=== PATIENT | female | born 1995 | race Caucasian/White ===

== ENCOUNTER 2020-11-01 23:35 | Emergency (ER) | payer OTHER, SELFPAY ==
[2020-11-01 23:44] VITALS: BP 140/73; PULSE 92; RESP 16; TEMP 36.6; O2SAT 100; BMI 29.8
--- NOTE | 2020-11-01 23:51 | ED_ITS ---
HPI - Female Genitourinary General Chief complaint: Abdominal Pain Stated complaint: 12w preg, severe pain in abd Time Seen by Provider: 11/01/20 23:35 Source: patient Mode of arrival: Ambulatory Limitations: no limitations History of Present Illness HPI Narrative: 25-year-old female nonsmoker is a at 12 weeks and presents with a chief complaint of a sudden onset right lower quadrant sharp and stabbing pain that started at about 9:00 p.m. tonight. She was laying on the floor with her son and moved and felt this sudden pain. It is sharp and stabbing worse with movement, improved with rest and does not radiate. She has had no fever chills. She denies nausea, vomiting or diarrhea. She denies any dysuria, frequency or urgency. She has never had kidney stones, has a surgically absent appendix and denies any ovarian trouble. She had a normal ultrasound by her service unit operator oil well at that 9 week luis enrique, she has had a normal to this point. She denies vaginal bleeding, discharge or leakage of fluid MD Complaint: pelvic pain Onset (ago): hour(s) Location: RLQ Severity: severe Quality: Sharp Duration: constant Exacerbating factors: movement Patient : Yes Associated symptoms: denies other symptoms Related Data Previous Rx's Medication Instructions Recorded cephalexin [Keflex] 500 mg PO QID 7 Days #28 cap 11/02/20 Allergies Allergy/AdvReac Type Severity Reaction Status Date / Time No Known Drug Allergies Allergy Verified 11/01/20 23:43 Review of Systems Constitutional Constitutional: Denies chills, Denies fatigue, Denies fever(s), Denies frequent falls, Denies lethargy and Denies weakness Eyes Eyes: Denies change in vision, Denies eye discharge, Denies irritation and Denies loss of vision ENT Ears, Nose, Mouth, and Throat: Denies change in voice, Denies dizziness, Denies neck pain, Denies sore throat and Denies throat swelling Cardiovascular Cardiovascular: Denies chest pain, Denies irregular heart rhythm, Denies lightheadedness, Denies palpitations, Denies dyspnea, Denies dyspnea on exertion and Denies orthopnea Respiratory Respiratory: Denies cough, Denies dyspnea, Denies dyspnea on exertion and Denies wheezing Gastrointestinal Gastrointestinal: Denies abdominal pain, Denies change in bowel habits, Denies diarrhea, Denies nausea and Denies vomiting Genitourinary Genitourinary: Reports pelvic pain Musculoskeletal Musculoskeletal: Denies neck pain and Denies numbness Integumentary/Breasts Skin/Breast: Denies pruritus, Denies erythema, Denies rash and Denies wounds Neurologic Neurologic: Denies behavioral changes, Denies confusion, Denies dizziness, Denies frequent falls, Denies loss of vision, Denies numbness and Denies weakness Psychiatric Psychiatric: Denies anxiety, Denies behavioral changes, Denies confusion, Denies depression, Denies homicidal ideation and Denies suicidal ideation Endocrine Endocrine: Denies fatigue, Denies flushing and Denies palpitations Hematologic/Lymphatic Hematologic/Lymphatic: Denies easy bruising Allergic/Immunologic Allergic/Immunologic: Denies urticaria, Denies throat swelling and Denies whee zing Patient History Substance Use Type: does not use Exam Narrative Exam Narrative: GENERAL: [25] year old patient appears stated age. Well- nourished, well-developed patient, in mild distress. HEAD: Atraumatic. Normocephalic. EYES: Pupils equal round and reactive. Extraocular motions intact. No scleral icterus. No injection or drainage. ENT: Nose without bleeding, purulent drainage. Throat without erythema, tonsillar hypertrophy or exudate. Airway patent. NECK: Trachea midline. Non tender CARDIOVASCULAR: Regular rate and rhythm without murmurs, gallops, or rubs. RESPIRATORY: Clear to auscultation. Breath sounds equal bilaterally. No wheezes, rales, or rhonchi. GASTROINTESTINAL: Abdomen soft, tender in RLQ to palp, nondistended. EXTREMITIES: No edema or joint tenderness. BACK: Nontender without deformity or crepitance. No flank tenderness. NEURO: AOx3. SKIN: No rash or erythema of visible areas Initial Vital Signs Initial Vital Signs: Vital Signs Temperature 97.8 F 11/01/20 23:44 Pulse Rate 92 H 11/01/20 23:44 Respiratory Rate 16 11/01/20 23:44 Blood Pressure 140/73 11/01/20 23:44 Pulse Oximetry 100 11/01/20 23:44 Course Orders Ordered: ED Orders 11/01/20 23:50 Basic Metabolic Panel Stat Complete Blood Count AUTO DIFF Stat HCG Quantitative /Beta subunit Stat 11/02/20 00:00 Urine Culture Stat Urine Microscopic Stat 11/02/20 00:53 US OB <= 14 weeks fetus Stat Discontinued Medications Cefazolin Sodium (Cephalexin 250 Mg Prepack) 1 bottle MISC SEEINSTR ONE Stop: 11/02/20 01:01 Last Admin: 11/02/20 01:50 Dose: 250 mg Documented by: NIDA Sodium Chloride (Normal Saline 0.9%) 1,000 mls @ 1,000 mls/hr IV BOLUS ONE Stop: 11/02/20 00:49 Last Infusion: 11/02/20 01:50 Dose: 0 mls/hr Documented by: Admin: 11/02/20 00:09 Dose: 1,000 mls/hr Documented by: NIDA Vital Signs Vital signs: Vital Signs - 8 hr 11/01/20 23:44 11/02/20 01:55 Temperature 97.8 F Pulse Rate 92 H 78 Respiratory Rate 16 18 Blood Pressure 140/73 136/72 Pulse Oximetry 100 98 MDM - Female Genitourinary Lab Data Result diagrams: 11/02/20 00:05 11/02/20 00:05 Labs: Lab Results 11/02/20 11/02/20 11/02/20 Range/Units 00:00 00:05 00:05 WBC 11.5 H (4.5-11.0) X10^3/uL RBC 4.54 (4.0-5.2) X10^6/uL Hgb 12.2 (12.0-16.0) g/dL Hct 37.7 (36-46) % MCV 83.0 (80-100) fL MCH 26.9 (26-34) PG MCHC 32.4 (30-36) % RDW 14.8 (11.6-14.8) % Plt Count 241 (150-400) X10^3/uL Neut % (Auto) 64.1 (50-75) % Lymph % (Auto) 28.3 (25-40) % [place] % (Auto) 5.6 (3-14) % Eos % (Auto) 1.5 L (2-4) % Baso % (Auto) 0.5 (0-2) % Neut # (Auto) 7300 H (7680-7379) /uL Lymph # (Auto) 3200 (4046-9505) /uL [place] # (Auto) 600 (0-900) /uL Eos # (Auto) 200 (0-450) /uL Baso # (Auto) 100 (0-100) /uL Sodium 135 L (137-145) mmol/L Potassium 3.6 (3.4-5.1) mmol/L Chloride 107 (98-107) mmol/L Carbon Dioxide 24 (22-32) mmol/L BUN 7 (7-17) mg/dL Creatinine 0.52 (0.52-1.04) mg/dL Estimated GFR > 60.0 (>60) mL/min BUN/Creatinine Ratio 13.5 (6-22) Glucose 97 (70-100) mg/dL Calcium 9.2 (8.4-10.2) mg/dL HCG, Quant 67844 mIU/mL Urine RBC 1-5/hpf (0-5/HPF) Urine WBC 30-100/hpf H (0-5/HPF) Ur Squamous Epith Cells 1-5 /hpf (0-5/HPF) Urine Bacteria Many (>30) H (None) Ur Culture Indicated? Specimen cultured Urine Dip Bedside Urine Glucose Negative Bedside Urine Bilirubin - Negative Bedside Urine Ketone - Negative Urine Specific [place] 1.030 Bedside Urine Occult Blood +/- Bedside Urine pH 6.0 Bedside Urine Protein +/- 15 Bedside Urine Urobilinogen - Negative Bedside Urine Nitrite - Negative Bedside Urine Leukocytes ++ 125 Esterase Imaging Data US - OB: Radiologist's Impression: No obvious abnormality Discharge Plan Departure Patient Disposition: Home Clinical Impression: UTI (urinary tract infection) Qualifiers: Urinary tract infection type: acute cystitis Hematuria presence: without hematuria Qualified Code(s): N30.00 - Acute cystitis without hematuria Instructions: DI for Urinary Tract Infection (UTI) Activity Restrictions/Additional Instructions: *You have been diagnosed with [right lower quadrant pain and UTI in ] *What to do: *Take medications as directed *Follow up with your primary care provider in 2-3 days, call for an appointment. Let them know you were seen in the Emergency Department and that we ask that you be seen in follow up *Return to ER if you should have any new, worsening or concerning symptoms, such as [increasing pain, fever greater than 101 F, shaking chills or other bothersome symptoms] Prescriptions: New cephalexin [Keflex] 500 mg capsule 500 mg PO QID 7 Days Qty: 28 RF: 0
[2020-11-02] MEDS: SODIUM CHLORIDE 0.9% 1,000 ML 1000 ML IV (00:09)
[2020-11-02 00:17] LABS: Add Manual Diff / Slide Review NO; Basophils Absolute Auto 100 /uL (0-100); Basophils Percent Auto 0.5 % (0-2); Eosinophils Absolute Auto 200 /uL (0-450); Eosinophils Percent Auto 1.5 % (2-4); Hematocrit 37.7 % (36-46); Hemoglobin 12.2 g/dL (12.0-16.0); Lymphocytes Absolute Auto 3200 /uL (1100-4500); Lymphocytes Percent Auto 28.3 % (25-40); Mean Corpuscular HGB Conc 32.4 % (30-36); Mean Corpuscular Hemoglobin 26.9 PG (26-34); Monocytes Absolute Auto 600 /uL (0-900); Monocytes Percent Auto 5.6 % (3-14); Neutrophils Absolute Auto 7300 /uL (1500-7000); Neutrophils Percent Auto 64.1 % (50-75); Platelet Count 241 X10^3/uL (150-400); Red Blood Cell Count 4.54 X10^6/uL (4.0-5.2); Red Cell Distribution Width 14.8 % (11.6-14.8); White Blood Cell Count 11.5 X10^3/uL (4.5-11.0)
[2020-11-02 00:28] LABS: BUN Creatinine Ratio 13.5 (6-22); Blood Urea Nitrogen 7 mg/dL (7-17); Calcium 9.2 mg/dL (8.4-10.2); Carbon Dioxide 24 mmol/L (22-32); Chloride 107 mmol/L (98-107); Estimated Glomerular Filt Rate > 60.0 mL/min (>60); Glucose 97 mg/dL (70-100); HEMOLYSIS < 15 (0-50); Potassium 3.6 mmol/L (3.4-5.1); Sodium 135 mmol/L (137-145)
[2020-11-02 00:39] LABS: RBC Urine 1-5/HPF (0-5/HPF); WBC Urine 30-100/HPF (0-5/HPF)
[2020-11-02 00:40] LABS: Bacteria Urine Many (>30); Culture Indicated Urine Specimen Cultured; Squamous Epithelial Cell Urine 1-5 /HPF (0-5/HPF)
--- NOTE | 2020-11-02 00:53 | DI.US.S_ITS ---
PROCEDURE: US OB <= 14 WEEKS FETUS INDICATIONS: RLQ pain, severe, sudden OUTSIDE/PRIOR DATING DATA: Last menstrual period (LMP): 07/26/2020. LMP-based estimated date of delivery (CHRISTINE): 05/02/2021. First dating scan (date and location): 11/02/2020. Estimated date of delivery (CHRISTINE) from first dating scan: 05/07/2021. TECHNIQUE: Real-time scanning was performed of the fetus and maternal pelvic organs, with image documentation. Endovaginal scanning was also performed to better visualize the fetus and maternal ovaries. COMPARISON: None. FINDINGS: Embryo: [facility] living intrauterine . [place]-rump length measuring at 7.3 cm, gestational age 13 weeks 3 days. Heart rate 157 BPM. Measurement variability in dating: +/- 4 weeks by LMP, +/- 7 days by mean sac diameter (use before 6 weeks gestation if crown-rump length not able to be measured), +/- 5 days by crown-rump length (up to 8 weeks 6 days gestation), +/- 7 days by crown-rump length (up to 13 weeks 6 days gestation). Maternal organs: Ovaries are not well seen secondary to overlying bowel gas. Limited images through the kidneys demonstrate no hydronephrosis. Left kidney dromedary hump. IMPRESSION: 1. Hsu living intrauterine at 13 weeks 3 days based on today's crown rump length. 2. No perigestational hemorrhage. Dictated by: Ken Sands M.D. on 11/02/2020 at 9:08 Approved by: Ken Sands M.D. on 11/02/2020 at 9:11
[2020-11-02 01:08] LABS: HCG Quantitative /Beta subunit 23973 mIU/mL
[2020-11-02] MEDS: cephALEXin 250 MG PREPACK 1 BOTTLE MISC (01:50)
[2020-11-02 01:55] VITALS: BP 136/72; PULSE 78; RESP 18; O2SAT 98
== END 2020-11-02 01:55 | disposition home or self-care (01) ==
PROVIDERS: Emergency Provider Emergency Medicine
DX: O23.41 Unspecified infection of urinary tract in pregnancy, first trimester (principal); Z3A.12 12 weeks gestation of pregnancy
CPT/HCPCS: 36415; 76801; 76817; 80048; 81003; 81015; 84702; 85025; 87086; 96360; 96361; 99283; 99284

== ENCOUNTER 2022-04-04 19:29 | Emergency (ER) | payer OTHER, SELFPAY ==
[2022-04-04 19:35] VITALS: BP 131/64; PULSE 90; RESP 18; TEMP 36.6; O2SAT 98
--- NOTE | 2022-04-04 20:26 | ED_ITS ---
HPI - Skin/Abscess/Foreign Bdy General Chief complaint: Skin/Abscess/Foreign Body Stated complaint: Possible Mastitis on Rt Breast Time Seen by Provider: 04/04/22 20:26 Mode of arrival: Ambulatory Limitations: no limitations History of Present Illness HPI narrative: Otherwise healthy 26-year-old currently 10 months still nursing with no significant medical history who presents with 3 days of increasing right breast pain on the medial aspect. She has been continuing to nurse and her baby apparently prefers the right breast. She has not noticed any redness however she has been having increasing nausea, chills, overall myalgias and is concerned that she might be developing mastitis. There is no vomiting, headaches, abdominal pain, diarrhea, chest pain, palpitations. Related Data Previous Rx's Medication Instructions Recorded cephalexin 500 mg capsule 500 mg PO TID #15 caps 04/04/22 Allergies Allergy/AdvReac Type Severity Reaction Status Date / Time No Known Drug Allergies Allergy Verified 11/01/20 23:43 Review of Systems Review of Systems Narrative: Remainder of complete review of systems is otherwise unremarkable except for that included in the HPI. Patient History Social History Smoking Status: Never smoker Smoking Status: Never smoker alcohol intake frequency: holidays/special occasions only Substance Use Type: does not use Exam Initial Vital Signs Initial Vital Signs: Vital Signs Temperature 98 F 04/04/22 19:35 Pulse Rate 90 04/04/22 19:35 Respiratory Rate 18 04/04/22 19:35 Blood Pressure 131/64 04/04/22 19:35 Pulse Oximetry 98 04/04/22 19:35 Oxygen Delivery Method 04/04/22 19:35 General: Alert appropriate in no acute distress Respiratory: Able to speak in full sentences, no obvious respiratory distress Chest: Breasts symmetrical without obvious erythema. Medial aspect of her right breast is quite tender with palpable full ducts. Skin: No obvious rashes, warm and dry Neurologic: Grossly intact no obvious asymmetries or abnormalities Psych: appropriate insight and affect, cooperative Bedside ultrasound of the breast confirms milk ducts rather than abscess developing. Course Orders Ordered: Discontinued Medications Cephalexin HCl (Cephalexin 250 Mg Capsule) 500 mg PO NOW ONE Stop: 04/04/22 20:39 Last Admin: 04/04/22 20:43 Dose: 500 mg Vital Signs Vital signs: Vital Signs - 8 hr 04/04/22 19:35 Temperature 98 F Pulse Rate 90 Respiratory Rate 18 Blood Pressure 131/64 Pulse Oximetry 98 Oxygen Delivery Method Room Air MDM - Skin/Abscess/Foreign Bdy MDM Narrative Medical decision making narrative: 26-year-old woman with 3 days of increasing right medial breast pain. She is breast feeding. Ultrasound suggests block ducts rather than developing abscess and there is and obvious mastitis on clinical exam. With the aid chills nausea and general malaise developing over the last 24 hours I am concerned that this is turning into an infection so will opt to treat with 5 days of Keflex. When over treatment of blocked milk ducts with heat, massage and continued active breast feeding. Questions are answered and she is safe for home discharge Discharge Plan Departure Patient Disposition: Home Clinical Impression: Breast pain, right Instructions: DI for Mastitis Activity Restrictions/Additional Instructions: Thank you for coming in today On clinical exam it does not appear that you have mastitis however with bedside ultrasound it does look like blocked milk ducts on the middle side of your breast Re your so sore. Because you are beginning to feel chills, nausea and generally unwell I am going to have you complete 5 days of Keflex. This is an antibiotic that we typically use to treat mastitis. This prescription was electronically transmitted to [facility] in [place] The best treatment for blocked milk ducts is continued nursing, heat and massage to the area that is tender particularly while nursing. Using 400 mg of ibuprofen (2 [id number] pills) and 1 Tylenol every 6 hours can be very helpful in controlling pain. If you find that you are getting worse, your developing redness over the breast itself you do need to return to the emergency department Prescriptions: New cephalexin 500 mg capsule 500 mg PO TID Qty: 15 0RF Referrals: Miscellaneous,DoctorMD [Primary Care Provider] -
[2022-04-04] MEDS: cephALEXin 250 MG CAPSULE 500 MG PO (20:43)
[2022-04-04 20:55] VITALS: BP 127/80; PULSE 67; O2SAT 16
== END 2022-04-04 20:56 | disposition home or self-care (01) ==
PROVIDERS: Emergency Provider Emergency Medicine
DX: N64.4 Mastodynia (principal)
CPT/HCPCS: 99283

== ENCOUNTER 2024-10-05 07:55 | Emergency (ER) | payer OTHER, SELFPAY ==
--- NOTE | 2024-10-05 08:01 | DI.RAD.S_ITS ---
PROCEDURE: XR CHEST 1V INDICATIONS: eval for PNA TECHNIQUE: One view of the chest was acquired. COMPARISON: None. FINDINGS: Surgical changes and devices: None. Lungs and pleura: Lungs are clear. No pleural effusions or pneumothorax. Mediastinum: Mediastinal contours appear normal. Heart size is normal. Bones and chest wall: No suspicious bony lesions. Overlying soft tissues appear unremarkable. IMPRESSION: No acute cardiopulmonary abnormality is seen. Dictated by: Luis Felipe Aldana M.D. on 10/05/2024 at 8:38 Approved by: Luis Felipe Aldana M.D. on 10/05/2024 at 8:40
[2024-10-05 08:05] VITALS: BP 139/96; PULSE 90; O2SAT 99
[2024-10-05 08:13] VITALS: BP 139/96; PULSE 90; RESP 17; TEMP 36.7; O2SAT 98; BMI 29.3
--- NOTE | 2024-10-05 08:15 | EKG_ITS ---
[address] [address] Test Date: 2024-10-05 Pat Name: Eric Zambrano Department: [facility] Room: Gender: Female Meter Inspector: ENID : [id number] Requested By: Order Number: [id number] Reading MD: Steve Lam MD Measurements Intervals [place] Rate: 85 P: 58 NV: 126 QRS: 63 QRSD: 86 T: 42 QT: 352 QTc: 418 Interpretive Statements Normal sinus rhythm Electronically Signed On 10-05-2024 12:04:03 PST by Steve Lam MD
--- NOTE | 2024-10-05 08:16 | ED_ITS ---
HPI - General Adult General Chief complaint: Upper Respiratory Symptoms Stated complaint: cough, fever, chest pain, sob, nausea Time Seen by Provider: 10/05/24 08:00 Source: patient Mode of arrival: Ambulatory Limitations: no limitations History of Present Illness HPI narrative: 28-year-old female. Otherwise healthy. Is here for evaluation of 2-3 days of a cough, fever, sore throat, heaviness in her chest, shortness of breath and nausea. Her children were recently diagnosed with both strep throat and the flu after having positive test for both of these infections. She feels like her symptoms have been persistent for the past couple days. No recent travel. Fevers at home. Related Data Previous Rx's Medication Instructions Recorded cephalexin 500 mg capsule 500 mg PO TID #15 caps 04/04/22 penicillin V potassium 500 mg 500 mg PO BID 10 days #20 tabs 10/05/24 tablet Allergies Allergy/AdvReac Type Severity Reaction Status Date / Time No Known Drug Allergies Allergy Verified 11/01/20 23:43 Review of Systems Review of Systems ROS Unobtainable: All systems reviewed & are unremarkable except as noted in HPI and below Patient History Social History Smoking Status: Never smoker Smoking Status: Never smoker alcohol intake frequency: holidays/special occasions only Exam Initial Vital Signs Initial Vital Signs: Vital Signs Pulse Rate 90 10/05/24 08:05 Blood Pressure 139/96 H 10/05/24 08:05 Pulse Oximetry 99 10/05/24 08:05 Const General: cooperative, comfortable and No ill appearing HENMT Head: normal to inspection and normocephalic Mouth: moist mucous membranes Throat: posterior oropharynx normal Resp Effort & Inspection: normal respiratory effort Auscultation: clear to auscultation bilaterally Cardio Rate: regular rate Rhythm: regular rhythm Skin General: no rashes or lesions noted Neuro General: patient alert, patient awake, patient oriented x3 and moves all extremities Extrem General: normal to inspection Course Orders Ordered: ED Orders 10/05/24 08:01 XR chest 1V Stat EKG-12 Lead Stat 10/05/24 08:10 Covid-19 + FLU A/B + RSV - PCR Stat 10/05/24 08:13 Urine Culture Stat Urine Microscopic Stat 10/05/24 08:25 Strep Grp A by PCR Rapid Stat Vital Signs Vital signs: Vital Signs - 8 hr 10/05/24 08:05 10/05/24 08:05 10/05/24 08:13 Temperature 98.1 F Pulse Rate 90 90 Respiratory Rate 17 Blood Pressure 139/96 H 139/96 H Pulse Oximetry 99 98 Oxygen Delivery Method Room Air 10/05/24 08:30 10/05/24 08:30 Temperature Pulse Rate 91 H Respiratory Rate 15 Blood Pressure 134/75 Pulse Oximetry 97 Oxygen Delivery Method Medical Decision Making Lab Data Lab results reviewed: Yes I reviewed the patient's lab results. Labs: Lab Results 10/05/24 10/05/24 10/05/24 Range/Units 08:10 08:13 08:25 Urine RBC 1-5/hpf (0-5/HPF) Urine WBC 5-10/hpf H (0-5/HPF) Ur Squamous Epith Cells 1-5 /hpf (0-5/HPF) Urine Bacteria Few (2-10) H (None) Ur Culture Indicated? TNP Vol Urine Centrifuged 10ml (spun) SARS-CoV-2 (PCR) Negative (Negative) Influenza A (RT-PCR) Flu a negative (NEGATIVE) Influenza B (RT-PCR) Flu b negative (NEGATIVE) RSV (PCR) Negative (Negative) Group A Strep (PCR) Positive H (Negative) Point of Care Testing Test Results Negative Urine Dip Bedside Urine Glucose Negative Bedside Urine Bilirubin - Negative Bedside Urine Ketone - Negative Urine Specific [place] 1.010 Bedside Urine Occult Blood - Negative Bedside Urine pH 6.0 Bedside Urine Protein - Negative Bedside Urine Urobilinogen - Negative Bedside Urine Nitrite - Negative Bedside Urine Leukocytes +/- 15 Esterase Point of care testing: Point of Care Testing Test Results Negative Urine Dip Bedside Urine Glucose Negative Bedside Urine Bilirubin - Negative Bedside Urine Ketone - Negative Urine Specific [place] 1.010 Bedside Urine Occult Blood - Negative Bedside Urine pH 6.0 Bedside Urine Protein - Negative Bedside Urine Urobilinogen - Negative Bedside Urine Nitrite - Negative Bedside Urine Leukocytes +/- 15 Esterase Imaging Data Chest x-ray: Radiologist's Impression: PROCEDURE: XR CHEST 1V INDICATIONS: eval for PNA TECHNIQUE: One view of the chest was acquired. COMPARISON: None. FINDINGS: Surgical changes and devices: None. Lungs and pleura: Lungs are clear. No pleural effusions or pneumothorax. Mediastinum: Mediastinal contours appear normal. Heart size is normal. Bones and chest wall: No suspicious bony lesions. Overlying soft tissues appear unremarkable. IMPRESSION: No acute cardiopulmonary abnormality is seen. ECG Data Attestation: I personally reviewed and interpreted this ECG as follows: Interpretation: Sinus rhythm Ventricular rate of [address] T wave MDM Narrative Additional Information: No respiratory distress. No concerns for retropharyngeal abscess/peritonsillar abscess. Vital signs unremarkable. She was positive for strep throat. Discussed treatment options to include IM Bicillin versus oral antibiotics and she opted for the oral antibiotics. Will discharge patient home with return precautions. She expressed understanding and agreement with plan. Discharge Plan Departure Patient Disposition: Home Clinical Impression: Strep pharyngitis Instructions: DI for Strep Throat Activity Restrictions/Additional Instructions: Be sure that you were increasing your fluid intake. You Can take Tylenol/ibuprofen for any fevers or body aches. Take the antibiotics as directed. Return to the emergency department for new or worsening symptoms. Prescriptions: New penicillin V potassium 500 mg tablet 500 mg PO BID 10 Days Qty: 20 0RF No Action cephalexin 500 mg capsule 500 mg PO TID Qty: 15 0RF Referrals: Miscellaneous,Doctor, [Primary Care Provider] - Stand Alone Forms: Patient Portal/API/Survey, Work Release Note
[2024-10-05 08:30] VITALS: BP 134/75; PULSE 91; RESP 15; O2SAT 97
[2024-10-05 08:35] LABS: Bacteria Urine Few (2-10); RBC Urine 1-5/HPF (0-5/HPF); Squamous Epithelial Cell Urine 1-5 /HPF (0-5/HPF); Urine Volume 10mL (spun); WBC Urine 5-10/HPF (0-5/HPF)
[2024-10-05 08:39] LABS: Strep Grp A by PCR Rapid Positive (Negative)
[2024-10-05 08:52] LABS: Influenza A - CEPHEID Flu A NEGATIVE (NEGATIVE); Influenza B - CEPHEID Flu B NEGATIVE (NEGATIVE); Respiratory Syncytial Virus Negative (Negative)
[2024-10-05 08:53] LABS: COVID-19 CEPHEID 4-PLEX PCR Negative (Negative)
[2024-10-05 09:00] VITALS: BP 121/60; PULSE 71; RESP 15; O2SAT 97
== END 2024-10-05 09:28 | disposition home or self-care (01) ==
PROVIDERS: Emergency Provider Emergency Medicine
DX: J02.0 Streptococcal pharyngitis (principal)
CPT/HCPCS: 0241U; 71045; 81003; 81015; 81025; 87086; 87651; 93005; 93010; 99282; 99284

== ENCOUNTER 2025-09-13 10:25 | Emergency (ER) | payer OTHER, SELFPAY ==
[2025-09-13 10:38] VITALS: BP 137/62; PULSE 96; RESP 16; TEMP 36.5; O2SAT 96; BMI 24.5
--- NOTE | 2025-09-13 11:28 | ED_ITS ---
HPI - Chest Pain General Chief Complaint: Chest Pain Stated Complaint: Chest pain 7 days Time Seen by Provider: 09/13/25 11:26 Source: patient Mode of arrival: Ambulatory Limitations: no limitations History of Present Illness HPI narrative: This is a 29-year-old female presenting to the emergency department due to Related Data Previous Rx's ?Medication ?Instructions ?Recorded cephalexin 500 mg capsule 500 mg PO TID #15 caps 04/04 Allergies Allergy/AdvReac Type Severity Reaction Status Date / Time No Known Drug Allergies Allergy Verified 11/01/20 23:43 Review of Systems Review of Systems Narrative: GENERAL: Denies chills, fatigue, malaise, fever, sweats. HEENT: Denies sinus pain, ear pain, sore throat, difficulty swallowing, dizziness. RESPIRATORY: Denies dyspnea, cough, wheezing, hemoptysis, sputum. CARDIOVASCULAR: Denies chest pain, palpitations, orthopnea, edema, GASTROINTESTINAL: Denies nausea, vomiting, abdominal pain, diarrhea, constipation, melena. : Denies dysuria, frequency, incontinence, hematuria, urinary retention. MUSCULOSKELETAL: denies weakness, joint pain, or bony pain SKIN: Denies rash, skin lesions, or other NEUROLOGIC: Denies weakness, headache, numbness, change in speech, confusion, seizures, incoordination. PSYCHIATRIC: No concerning psychosocial issues. 12 point review of systems is negative except for those stated above Patient History tobacco type: vaping alcohol intake frequency: holidays/special occasions only Exam Narrative Exam Narrative: GENERAL: Well-developed patient, in mild distress. HEAD: Atraumatic. Normocephalic. EYES: Pupils equal round and reactive. Extraocular motions intact. No scleral icterus. No injection or drainage. ENT: Nose without bleeding, purulent drainage. Throat without erythema, tonsillar hypertrophy or exudate. Airway patent. NECK: Trachea midline. Non tender EXTREMITIES: No edema or joint tenderness. NEURO: AOx3. SKIN: No rash or erythema of visible areas Initial Vital Signs Initial Vital Signs: Vital Signs Temperature 97.7 F 09/13/25 10:38 Pulse Rate 96 H 09/13/25 10:38 Respiratory Rate 16 09/13/25 10:38 Blood Pressure 137/62 09/13/25 10:38 Pulse Oximetry 96 09/13/25 10:38 Oxygen Delivery Method Room Air 09/13/25 10:38 Course Orders Ordered: Discontinued Medications Lorazepam (Lorazepam 0.5 Mg Tablet) 0.5 mg PO NOW ONE Stop: 09/13/25 10:48 Last Admin: 09/13/25 10:54 Dose: 0.5 mg Documented By: JORDEN Vital Signs Vital signs: Vital Signs - 8 hr 09/13/25 10:38 Temperature 97.7 F Pulse Rate 96 H Respiratory Rate 16 Blood Pressure 137/62 Pulse Oximetry 96 Oxygen Delivery Method Room Air MDM - Chest Pain MDM Narrative Medical decision making narrative: ED course: [ ] CC: [ ] Complicating co-morbidities: [ ] Data collected from: Previous notes Medical records reviewed: Patient was last seen here roughly a year ago due to cough, fever, heaviness in the chest, shortness of breath, nausea. No pertinent medical history. EKG was unremarkable at that time. Differential considered, but not limited to: [ ] Exam documented above, pertinent findings include: [ ] Lab Test results independently reviewed as above. Pertinent findings: [ ] Imaging studies independently reviewed: [ ] Scores Used: None MIPS Elements: None Consultations: None Treatments: [ ] Re-evaluations: [ ] Discussion: Discussed plan with the patient was comfortable with the plan Diagnosis: [ ] Disposition: see below, along with detailed discharge instructions that have been reviewed with patient as well as indications for ED re-evaluation and a dditional outpatient follow up Discharge Plan Departure Prescriptions: No Action cephalexin 500 mg capsule 500 mg PO TID Qty: 15 0RF Referrals: Provider,Chiara SCOTT [Primary Care Provider, Family Practice]
[2025-09-13 12:27] VITALS: BP 124/75; PULSE 78; RESP 16; O2SAT 98
--- NOTE | 2025-09-13 12:49 | ED_ITS ---
HPI - Chest Pain General Chief Complaint: Chest Pain Stated Complaint: Chest pain 7 days Time Seen by Provider: 09/13/25 11:26 Source: patient Mode of arrival: Ambulatory Limitations: no limitations History of Present Illness HPI narrative: This is a 29-year-old female presents emergency department due to a week history of often on intermittent chest pain shortness of breath. She states that yesterday she experienced some worsening chest pain or shortness of breath and ?felt like she blacked out? although she denies any distinct loss of conscious. No URI. Does not recall anything that may have caused the symptoms to begin. Does not history of anxiety attacks but states like that this is like these on steroids?. Related Data Previous Rx's ?Medication ?Instructions ?Recorded cephalexin 500 mg capsule 500 mg PO TID #15 caps 04/04 Allergies Allergy/AdvReac Type Severity Reaction Status Date / Time No Known Drug Allergies Allergy Verified 11/01/20 23:43 Review of Systems Review of Systems Narrative: GENERAL: Denies chills, fatigue, malaise, fever, sweats. HEENT: Denies sinus pain, ear pain, sore throat, difficulty swallowing, dizziness. RESPIRATORY: Reports dyspnea, denies cough, wheezing, hemoptysis, sputum. CARDIOVASCULAR: Reports chest pain chest pain, denies palpitations, orthopnea, edema, GASTROINTESTINAL: Denies nausea, vomiting, abdominal pain, diarrhea, constipation, melena. : Denies dysuria, frequency, incontinence, hematuria, urinary retention. MUSCULOSKELETAL: denies weakness, joint pain, or bony pain SKIN: Denies rash, skin lesions, or other NEUROLOGIC: Denies weakness, headache, numbness, change in speech, confusion, seizures, incoordination. PSYCHIATRIC: No concerning psychosocial issues. 12 point review of systems is negative except for those stated above Patient History tobacco type: vaping alcohol intake frequency: holidays/special occasions only Exam Narrative Exam Narrative: GENERAL: Well-developed patient, in mild distress. HEAD: Atraumatic. Normocephalic. EYES: Pupils equal round and reactive. Extraocular motions intact. No scleral icterus. No injection or drainage. ENT: Nose without bleeding, purulent drainage. Throat without erythema, tonsillar hypertrophy or exudate. Airway patent. NECK: Trachea midline. Non tender EXTREMITIES: No edema or joint tenderness. NEURO: AOx3. SKIN: No rash or erythema of visible areas CARDIOVASCULAR: Regular rate and rhythm without murmurs, gallops, or rubs. RESPIRATORY: Clear to auscultation. Breath sounds equal bilaterally. No wheezes, rales, or rhonchi. Initial Vital Signs Initial Vital Signs: Vital Signs Temperature 97.7 F 09/13/25 10:38 Pulse Rate 96 H 09/13/25 10:38 Respiratory Rate 16 09/13/25 10:38 Blood Pressure 137/62 09/13/25 10:38 Pulse Oximetry 96 09/13/25 10:38 Oxygen Delivery Method Room Air 09/13/25 10:38 Course Orders Ordered: ED Orders 09/13/25 12:37 Complete Blood Count AUTO DIFF Stat Comprehensive Metabolic Panel Stat D Dimer Stat Troponin I Stat 09/13/25 12:55 XR chest 2V Stat 09/13/25 12:56 EKG-12 Lead Stat Discontinued Medications Lorazepam (Lorazepam 0.5 Mg Tablet) 0.5 mg PO NOW ONE Stop: 09/13/25 10:48 Last Admin: 09/13/25 10:54 Dose: 0.5 mg Documented By: JORDEN Vital Signs Vital signs: Vital Signs - 8 hr 09/13/25 10:38 09/13/25 12:27 Temperature 97.7 F Pulse Rate 96 H 78 Respiratory Rate 16 16 Blood Pressure 137/62 124/75 Pulse Oximetry 96 98 Oxygen Delivery Method Room Air Room Air MDM - Chest Pain Lab Data 09/13/25 12:37 09/13/25 12:37 Labs: Lab Results 09/13/25 Range/Units 12:37 WBC 8.3 (4.5-11.0) X10^3/uL RBC 4.71 (4.0-5.2) X10^6/uL Hgb 14.0 (12.0-16.0) g/dL Hct 41.9 (36-46) % MCV 88.9 (80-100) fL MCH 29.8 (26-34) PG MCHC 33.5 (30-36) % RDW 13.2 (11.6-14.8) % Plt Count 269 (150-400) X10^3/uL Neut % (Auto) 61.0 (50-75) % Lymph % (Auto) 30.5 (25-40) % [place] % (Auto) 6.1 (3-14) % Eos % (Auto) 1.8 L (2-4) % Baso % (Auto) 0.6 (0-2) % Neut # (Auto) 5000 (1755-2831) /uL Lymph # (Auto) 2500 (3286-8178) /uL [place] # (Auto) 500 (0-900) /uL Eos # (Auto) 200 (0-450) /uL Baso # (Auto) 0 (0-100) /uL D-Dimer < 215 (<500) ng/ml Sodium 142 (137-145) mmol/L Potassium 4.3 (3.4-5.1) mmol/L Chloride 106 (98-107) mmol/L Carbon Dioxide 25 (22-32) mmol/L BUN 9 (7-17) mg/dL Creatinine 0.83 (0.52-1.04) mg/dL Estimated GFR > 60 (>60) mL/min BUN/Creatinine Ratio 10.8 (6-22) Glucose 97 (70-99) mg/dL Calcium 9.9 (8.4-10.2) mg/dL Total Bilirubin 0.5 (0.2-1.3) mg/dL AST 22 (14-36) IU/L ALT 17 (<35) IU/L Alkaline Phosphatase 50 (38-126) U/L Troponin I < 0.012 (0.01-0.034) ng/mL Total Protein 8.2 (6.3-8.2) g/dL Albumin 5.0 (3.5-5.0) g/dL Globulin 3.2 (1.7-4.1) g/dL Albumin/Globulin Ratio 1.6 (1.0-2.8) Imaging Data Chest x-ray: Radiologist's Impression: [address] [address] XRay Report Signed Patient: Eric Zambrano MR#: [id number] : 1995 Acct:[id number] Age/Sex: 29 / F Date of Service: 09/13/25 Loc: ED Accession Number: [id number] Procedure: XR chest 2V Ordering Provider: Phan Trotter PA-C PROCEDURE: XR CHEST 2V INDICATIONS: SOB TECHNIQUE: 2 views of the chest were acquired. COMPARISON: [facility], CR, XR CHEST 1V, 10/05/2024, 8:17. FINDINGS AND IMPRESSION: No airspace consolidation or pleural effusion. Normal heart size. Unremarkable osseous structures. Dictated by: Holden Posey M.D. on 09/13/2025 at 13:11 Approved by: Holden Posey M.D. on 09/13/2025 at 13:12 ECG Data Interpretation: 1039: EKG shows normal sinus rhythm with a rate 83 beats per minute. No ST elevation or T-wave abnormalities. MDM Narrative Medical decision making narrative: ED course: This is a 29-year-old female presenting to the emergency department due to a week of intermittent chest pain shortness of breath. Cardiac workup was reassuring, chest x-ray normal, D-dimer negative. Patient does have a history of anxiety and anxiety attacks and suspect this maybe a element in the symptoms. Recommended she speak with the primary care provider about medication titration. Heart score of 1 CC: Chest pain Complicating co-morbidities: History of anxiety and anxiety attacks Data collected from: Previous notes Medical records reviewed: Patient was last seen here a year ago due to cough, fever, sore throat, heaviness in her chest. No pertinent medical history. EKG at that time was reassuring. Differential considered, but not limited to: ACS, PE, pneumothorax, anxiety Exam documented above, pertinent findings include: No abnormalities on exam Lab Test results independently reviewed as above. Pertinent findings: All within normal limits Imaging studies independently reviewed: Chest x-ray negative Scores Used: None MIPS Elements: None Consultations: None Treatments: None Re-evaluations: No Discussion: Discussed plan with the patient was comfortable with the plan Diagnosis: Anxiety Disposition: see below, along with detailed discharge instructions that have been reviewed with patient as well as indications for ED re-evaluation and additional outpatient follow up Discharge Plan Departure Patient Disposition: Home Clinical Impression: Shortness of breath Activity Restrictions/Additional Instructions: Thank you for coming to the [facility] Emergency Department today. As we discussed your workup today was very reassuring. We did lab work and testing to check for a ?heart attack? and there was no evidence of any cardiac abnormality. We also did a blood test to check for any kind of blood clot in your lung which was negative. The chest x-ray showed no other abnormalities. I suspect your chronic anxiety BB an element here and recommended he speak with the primary care provider about medication titration. Please return to the emergency department if you develop any significant new or worsening symptoms or any other concerning signs or symptoms. I hope you feel better soon. Please follow up with your primary care provider within a week if your symptoms continue. If you do not have a primary care provider please contact the [facility] Resource line at [phone]. They will ask some questions about your medical history and help you get set up with a provider in the community. Prescriptions: No Action cephalexin 500 mg capsule 500 mg PO TID Qty: 15 0RF Referrals: [facility] [Primary Care Provider, Family Practice] Stand Alone Forms: Patient Portal/API
--- NOTE | 2025-09-13 12:55 | DI.RAD.S_ITS ---
PROCEDURE: XR CHEST 2V INDICATIONS: SOB TECHNIQUE: 2 views of the chest were acquired. COMPARISON: [facility], , XR CHEST 1V, 10/05/2024, 8:17. FINDINGS AND IMPRESSION: No airspace consolidation or pleural effusion. Normal heart size. Unremarkable osseous structures. Dictated by: Holden Posey M.D. on 09/13/2025 at 13:11 Approved by: Holden Posey M.D. on 09/13/2025 at 13:12
--- NOTE | 2025-09-13 12:56 | EKG_ITS ---
[address] [address] [address], [place] [address] Test Date: 2025-09-13 Pat Name: Eric Zambrano Department: Room: Gender: Female [employer]: BOO : 1995 Requested By: Order Number: [id number] Reading MD: Steve Lam MD Measurements Intervals [place] Rate: 83 P: 65 FL: 130 QRS: 65 QRSD: 82 T: 51 QT: 356 QTc: 418 Interpretive Statements Normal sinus rhythm Electronically Signed On 09-13-2025 16:34:24 PST by Steve Lam MD
[2025-09-13 13:07] LABS: Add Manual Diff / Slide Review NO; Hematocrit 41.9 % (36-46); Hemoglobin 14.0 g/dL (12.0-16.0); Lymphocytes Absolute Auto 2500 /uL (1100-4500); Mean Corpuscular HGB Conc 33.5 % (30-36); Mean Corpuscular Hemoglobin 29.8 PG (26-34); Mean Corpuscular Volume 88.9 fL (80-100); Platelet Count 269 X10^3/uL (150-400)
[2025-09-13 13:10] LABS: Alanine Aminotransferase 17 IU/L (<35); Albumin 5.0 g/dL (3.5-5.0); Albumin Globulin Ratio 1.6 (1.0-2.8); Alkaline Phosphatase 50 U/L (38-126); Blood Urea Nitrogen 9 mg/dL (7-17); Calcium 9.9 mg/dL (8.4-10.2); Carbon Dioxide 25 mmol/L (22-32); Chloride 106 mmol/L (98-107); Estimated Glomerular Filt Rate > 60 mL/min (>60); Globulin 3.2 g/dL (1.7-4.1); Glucose 97 mg/dL (70-99); HEMOLYSIS < 15 (0-50); Potassium 4.3 mmol/L (3.4-5.1); Sodium 142 mmol/L (137-145); Total Protein 8.2 g/dL (6.3-8.2)
[2025-09-13 13:22] LABS: Troponin I < 0.012 ng/mL (0.01-0.034)
== END 2025-09-13 14:09 | disposition home or self-care (01) ==
PROVIDERS: Emergency Provider Physician Assistant Medical
DX: R06.02 Shortness of breath (principal); R07.9 Chest pain, unspecified
CPT/HCPCS: 71046; 80053; 84484; 85025; 85379; 93005; 93010; 99283; 99284